=== PATIENT | male | born 1960 | race Caucasian/White ===

== ENCOUNTER 2016-11-11 09:15 | Emergency (ER) | payer BC, OTHER ==
[2016-11-11 09:31] VITALS: BP 126/95
--- NOTE | 2016-11-11 09:47 | EDM.PDOC ---
ED HPI GENERAL MEDICAL PROBLEM - General Chief Complaint: General Stated Complaint: NOT FEELING GOOD, SOB, NECK/BACK PAIN Time Seen by Provider: 11/11/16 09:35 Source of Information: Reports: Patient History Limitations: Reports: No Limitations - History of Present Illness INITIAL COMMENTS - FREE TEXT/NARRATIVE: This 56 yo male patient reports to the ED with left sided neck stiffness, left ear plugging, a sore throat and a productive cough. The patient reports his left neck has been hurting for several days, but seems to be getting worse. The patient has not taken anything for temporary symptom relief. The patient reports he was hand mowing lawns over the weekend when his neck started to ache. The patient reports plugging of his left ear, intermittent dizziness, a sore throat and productive cough started several days ago and are getting worse. The patient reports he can not take NSAIDs due to his polycystic kidney disease. Onset: Gradual Duration: Day(s):, Constant, Getting Worse Location: Reports: Head, Neck, Chest Quality: Reports: Ache, Dull Severity: Moderate Improves with: Reports: None Worsens with: Reports: None Associated Symptoms: Reports: cough w sputum, Shortness of Breath Neck Pain Score (Numeric/FACES): 1 - Related Data Allergies Allergy/AdvReac Type Severity Reaction Status Date / Time No Known Allergies Allergy Verified 11/11/16 09:26 Home Meds: Home Meds Aspirin [Adult Low Dose Aspirin EC] 81 mg PO DAILY 11/11/16 [History] Lisinopril [Prinivil] 10 mg PO DAILY 11/11/16 [History] Past Medical History HEENT History: Reports: None Cardiovascular History: Reports: High Cholesterol, Hypertension Respiratory History: Reports: None Gastrointestinal History: Reports: None Genitourinary History: Reports: None Musculoskeletal History: Reports: None Neurological History: Reports: None Psychiatric History: Reports: None Endocrine/Metabolic History: Reports: None Hematologic History: Reports: None Immunologic History: Reports: None Oncologic (Cancer) History: Reports: None Dermatologic History: Reports: None Social & Family History - Tobacco Use Smoking Status *Q: Heavy Tobacco Smoker Years of Tobacco use: 35 Packs/Tins Daily: 1 - Recreational Drug Use Recreational Drug Use: No ED ROS GENERAL - Review of Systems Review Of Systems: ROS reveals no pertinent complaints other than HPI. ED EXAM, GENERAL - Physical Exam Exam: See Below Exam Limited By: No Limitations General Appearance: Alert, WD/WN, Mild Distress Eye Exam: Bilateral Eye: EOMI, Normal Inspection, PERRL Ear Exam: Right Ear: TM normal, Left Ear: TM Dull, Other (retracted ), Bilateral Ear: Auricle Normal, Canal Normal Nose: Normal Inspection, Normal Mucosa, No Blood Throat/Mouth: Normal Lips, Normal Teeth, Normal Gums, Inflammation (posterior pharynx) Head: Atraumatic, Normocephalic Neck: Normal Inspection, Supple, Limited Range of Motion, Tender Lateral Respiratory/Chest: No Respiratory Distress, No Accessory Muscle Use, Chest Non- Tender, Decreased Breath Sounds (bilateral lower lobes) Cardiovascular: Normal Peripheral Pulses, Regular Rate, Rhythm, No Edema, No Gallop, No JVD, No Murmur, No Rub GI/Abdominal: Normal Bowel Sounds, Soft, Non-Tender, No Organomegaly, No Distention, No Abnormal Bruit, No Mass (Male) Exam: Deferred Rectal (Males) Exam: Deferred Back Exam: Normal Inspection, Full Range of Motion, NT Extremities: Normal Inspection, Normal Range of Motion, Non-Tender, Normal Capillary Refill, No Pedal Edema Neurological: Alert, Oriented, CN II-XII Intact, Normal Cognition, Normal Gait, Normal Reflexes, No Motor/Sensory Deficits Psychiatric: Normal Affect, Normal Mood Skin Exam: Warm, Dry, Intact, Normal Color, No Rash Lymphatic: No Adenopathy Course - Vital Signs Last Recorded V/S: Last Vital Signs Temp 35.3 C 11/11/16 09:27 Pulse 74 11/11/16 09:27 Resp 18 11/11/16 09:27 BP 126/95 H 11/11/16 09:27 Pulse Ox 99 11/11/16 09:27 Departure - Departure Time of Disposition: 09:42 Disposition: Home, Self-Care 01 Condition: fair Clinical Impression: Bronchitis Pharyngitis Qualifiers: Pharyngitis/tonsillitis etiology: unspecified etiology Qualified Code(s): J02.9 - Acute pharyngitis, unspecified Sinusitis Qualifiers: Sinusitis location: maxillary Chronicity: acute Recurrence: non-recurrent Qualified Code(s): J01.00 - Acute maxillary sinusitis, unspecified Neck muscle strain Qualifiers: Encounter type: initial encounter Qualified Code(s): S16.1XXA - Strain of muscle, fascia and tendon at neck level, initial encounter - Discharge Information Instructions: Pharyngitis, [id number], Sinusitis, Adult, [id number], Acute Bronchitis, [id number] Forms: ED Department Discharge Care Plan Goals: The patient was advised of the examination results during the visit. The patient was given a script for Keflex (500 mg) #40 to take 1 by mouth 4 times per day for 10 days. The patient was encouraged to take Tylenol for his neck pain and use heat. If the patient has any additional symptoms or concerns, the patient should follow-up with his primary care facility or return to the emergency department.
== END 2016-11-11 09:51 | disposition home or self-care (01) ==
LOC: DL.ED 09:15
DX: S16.1XXA Strain of muscle, fascia and tendon at neck level, initial encounter (principal); J40 Bronchitis, not specified as acute or chronic; J02.9 Acute pharyngitis, unspecified; J01.00 Acute maxillary sinusitis, unspecified; E78.00 Pure hypercholesterolemia, unspecified; I10 Essential (primary) hypertension; F17.210 Nicotine dependence, cigarettes, uncomplicated; Z79.899 Other long term (current) drug therapy; Z79.82 Long term (current) use of aspirin; X58.XXXA Exposure to other specified factors, initial encounter
CPT/HCPCS: 99283

== ENCOUNTER 2018-07-30 03:49 | Emergency (ER) | payer OTHER ==
[~2018-07-30 03:49] MED LIST: Acetaminophen 325 MG Tab PO ONE; Nitroglycerin 0.4 MG Tab.SL SL ONE
[2018-07-30 04:02] VITALS: BP 129/99
--- NOTE | 2018-07-30 04:03 | EDM.PDOC ---
<Andreia Escobar - Last Filed: 07/30/18 06:01> ED HPI GENERAL MEDICAL PROBLEM - General Chief Complaint: Chest Pain Stated Complaint: AMBULANCE-UNKNOWN Time Seen by Provider: 07/30/18 03:55 Source of Information: Reports: Patient, EMS Notes Reviewed History Limitations: Reports: No Limitations - History of Present Illness INITIAL COMMENTS - FREE TEXT/NARRATIVE: ED with c/o midsternal chest pain onset 033. Diaphoretic at onset, sharp, pounding pressure. No nausea no radiation to jaw or arm. Reports pain radiating to back. Hx hypertension, has not taken meds past couple of days. No prior hx of IA, smoker 1 ppd. Rated pain 8/10 at onset. 4/10 on arrival to ED. 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: Reports: Nitroglycerin Mid-Sternal Chest Pain Score (Numeric/FACES): 7 - Related Data Allergies Allergy/AdvReac Type Severity Reaction Status Date / Time No Known Allergies Allergy Verified 07/30/18 03:58 Home Meds: Home Meds Aspirin [Adult Low Dose Aspirin EC] 81 mg PO DAILY 11/11/16 [History] Lisinopril [Prinivil] 10 mg PO DAILY 11/11/16 [History] Past Medical History HEENT History: Reports: None Cardiovascular History: Reports: High Cholesterol, Hypertension Respiratory History: Reports: COPD Gastrointestinal History: Reports: None Genitourinary History: Reports: None Musculoskeletal History: Reports: None Neurological History: Reports: None Psychiatric History: Reports: None Endocrine/Metabolic History: Reports: None Hematologic History: Reports: None Immunologic History: Reports: None Oncologic (Cancer) History: Reports: None Dermatologic History: Reports: None ED ROS GENERAL - Review of Systems Review Of Systems: ROS reveals no pertinent complaints other than HPI. ED EXAM, GENERAL - Physical Exam Exam: See Below Exam Limited By: No Limitations General Appearance: Alert, Anxious, Mild Distress Eye Exam: Bilateral Eye: EOMI Ears: Normal External Exam Nose: Normal Inspection Throat/Mouth: Normal Inspection Head: Atraumatic, Normocephalic Neck: Normal Inspection, Full Range of Motion Respiratory/Chest: No Respiratory Distress, Lungs Clear, Normal Breath Sounds Cardiovascular: Normal Peripheral Pulses, Regular Rate, Rhythm, No Edema, No JVD , No Murmur GI/Abdominal: Normal Bowel Sounds, Soft, Tender (mild epigastric with palpation) Back Exam: Full Range of Motion Extremities: Normal Inspection, Normal Range of Motion Neurological: Alert, Oriented, Normal Cognition Psychiatric: Normal Affect Skin Exam: Warm, Dry, Intact, Normal Color Course - Vital Signs Last Recorded V/S: Last Vital Signs Temp 36.6 C 07/30/18 03:55 Pulse 85 07/30/18 03:55 Resp 13 07/30/18 03:55 BP 129/99 H 07/30/18 04:00 Pulse Ox 96 07/30/18 04:04 - Orders/Labs/Meds Orders: Active Orders 24 hr Category Date Time Status EKG 12 Lead [EKG Documentation Completion] [] URGENT Care 07/30/18 03:39 Active EKG 12 Lead [EKG Documentation Completion] [] URGENT Care 07/30/18 07:30 Active Heparin Sodium/0.45% NaCl [Heparin 25,000 Units in 1/2 Med 07/30/18 08:15 Active NS 500 ML] 25,000 units in 500 ml IV TITRATE Medication Orders Heparin Sodium/Sodium Chloride (Heparin 25,000 Units In 1/2 Ns 500 Ml) 25,000 units in 500 mls @ 24.494 mls/hr IV TITRATE ALEXEI; Protocol Last Admin: 07/30/18 08:19 Dose: 12 units/kg/hr, 24.494 mls/hr Labs: Laboratory Tests 07/30/18 07/30/18 07/30/18 Range/Units 03:50 03:50 03:50 WBC 7.9 (5.0-10.0) 10^3/uL RBC 4.17 L (4.6-6.2) 10^6/uL Hgb 13.4 L (14.0-18.0) g/dL Hct 40.2 (40.0-54.0) % MCV 96.4 (80-100) fL MCH 32.1 (27.0-34.0) pg MCHC 33.3 (33.0-35.0) g/dL Plt Count 213 (150-450) 10^3/uL Neut % (Auto) 51.5 (42.2-75.2) % Lymph % (Auto) 34.8 (20.5-50.1) % [place] % (Auto) 8.4 H (2-8) % Eos % (Auto) 4.5 H (1.0-3.0) % Baso % (Auto) 0.8 (0.0-1.0) % PT 10.1 (9.0-12.0) SEC INR 1.0 (0.9-1.2) D-Dimer, Quantitative 160 (0-400) ng/mL Sodium 138 (135-145) mmol/L Potassium 4.1 (3.6-5.0) mmol/L Chloride 105 (101-111) mmol/L Carbon Dioxide 24.0 (21.0-31.0) mmol/L Anion Gap 13.1 BUN 28 H (7-18) mg/dL Creatinine 1.8 H (0.6-1.3) mg/dL Est Cr Clr Drug Dosing 50.74 mL/min Estimated GFR (MDRD) 39 BUN/Creatinine Ratio 15.55 Glucose 180 H (74-105) mg/dL Calcium 8.9 (8.4-10.2) mg/dl Magnesium 1.8 (1.8-2.5) mg/dL Total Bilirubin 0.5 (0.2-1.0) mg/dL AST 26 (10-42) IU/L ALT 22 (10-60) IU/L Alkaline Phosphatase 54 (42-121) IU/L CK-MB (CK-2) (0.4-4.7) ng/mL Troponin I < 0.02 (0.00-0.02) ng/ml Total Protein 6.9 (6.7-8.2) g/dl Albumin 3.9 (3.2-5.5) g/dl Globulin 3.0 Albumin/Globulin Ratio 1.30 07/30/18 07/30/18 Range/Units 03:50 07:30 WBC (5.0-10.0) 10^3/uL RBC (4.6-6.2) 10^6/uL Hgb (14.0-18.0) g/dL Hct (40.0-54.0) % MCV (80-100) fL MCH (27.0-34.0) pg MCHC (33.0-35.0) g/dL Plt Count (150-450) 10^3/uL Neut % (Auto) (42.2-75.2) % Lymph % (Auto) (20.5-50.1) % [place] % (Auto) (2-8) % Eos % (Auto) (1.0-3.0) % Baso % (Auto) (0.0-1.0) % PT (9.0-12.0) SEC INR (0.9-1.2) D-Dimer, Quantitative (0-400) ng/mL Sodium (135-145) mmol/L Potassium (3.6-5.0) mmol/L Chloride (101-111) mmol/L Carbon Dioxide (21.0-31.0) mmol/L Anion Gap BUN (7-18) mg/dL Creatinine (0.6-1.3) mg/dL Est Cr Clr Drug Dosing mL/min Estimated GFR (MDRD) BUN/Creatinine Ratio Glucose (74-105) mg/dL Calcium (8.4-10.2) mg/dl Magnesium (1.8-2.5) mg/dL Total Bilirubin (0.2-1.0) mg/dL AST (10-42) IU/L ALT (10-60) IU/L Alkaline Phosphatase (42-121) IU/L CK-MB (CK-2) 3.40 (0.4-4.7) ng/mL Troponin I 2.96 H* (0.00-0.02) ng/ml Total Protein (6.7-8.2) g/dl Albumin (3.2-5.5) g/dl Globulin Albumin/Globulin Ratio Meds: Medications Generic Name Dose Route Start Last Admin Trade Name Freq PRN Reason Stop Dose Admin Heparin Sodium/Sodium Chloride 25,000 units in 500 mls @ 24.494 mls/hr 08:15 07/30/18 08:19 Heparin 25,000 Units In 1/2 Ns 500 Ml IV 12 units/kg/hr TITRATE ALEXEI 24.494 mls/hr Administration Protocol 12 UNITS/KG/HR Discontinued Medications Generic Name Dose Route Start Last Admin Trade Name Freq PRN Reason Stop Dose Admin Acetaminophen 650 mg 07/30/18 03:47 07/30/18 03:59 Tylenol PO 07/30/18 03:48 650 mg NOW ONE Administration Clopidogrel Bisulfate 300 mg 07/30/18 08:05 07/30/18 08:12 Plavix PO 07/30/18 08:06 300 mg ONETIME ONE Administration Heparin Sodium (Porcine) 4,000 units 07/30/18 08:05 07/30/18 08:14 Heparin Sodium IVPUSH 07/30/18 08:06 4,000 units ONETIME ONE Administration Morphine Sulfate 2 mg 07/30/18 04:21 07/30/18 04:27 Morphine IVPUSH 07/30/18 04:22 2 mg ONETIME ONE Administration Nitroglycerin 0.4 mg 07/30/18 03:44 07/30/18 04:00 Nitrostat SL 07/30/18 03:45 0.4 mg ONETIME ONE Administration Ondansetron HCl 4 mg 07/30/18 04:21 07/30/18 04:26 Zofran IV 07/30/18 04:22 4 mg ONETIME ONE Administration - Radiology Interpretation Free Text/Narrative:: accordance with law. If you received this in error, call [phone]. Page 1 of 1 EXAM: XR Chest, 1 View EXAM DATE/TIME: 07/30/2018 4:08 AM CLINICAL HISTORY: 58 years old, male; Pain; Chest pain; Type not specified TECHNIQUE: XR of the chest, 1 view. COMPARISON: CR CHEST PORTABLE 02/27/2012 5:45 PM FINDINGS: Lungs: Unremarkable. No consolidation. Pleural space: Unremarkable. No pleural effusion. No pneumothorax. Heart/Mediastinum: Unremarkable. No cardiomegaly. Bones/joints: Unremarkable. IMPRESSION: No acute findings. Thank you for allowing us to participate in the care of your patient. Dictated and Authenticated by: Allan Paez MD 07/30/2018 5:49 AM Central Time ([place] & [place]) - Re-Assessments/Exams Free Text/Narrative Re-Assessment/Exam: 07/30/18 05:51 Pain 1/10 after 3rd Nitro. No distress. Family here conversing with them and talking on phone. VSS. Telemetry remains NSR without ectopy. Initial EKG unremarkable for acute event. No EKG's available for comparison. Does c/o slight headache after nitro. Morphine 2mgwith complete relief of chest pain Continue to monitor and repeat torponin and EKG at 0730. Departure - Departure Disposition: DC/Tfer to [facility] Clinical Impression: Non-ST elevated myocardial infarction (non-STEMI) Forms: ED Department Discharge, Interfacility Transfer EMTALA - My Orders Last 24 Hours: My Active Orders 07/30/18 08:15 Heparin Sodium/0.45% NaCl [Heparin 25,000 Units in 1/2 NS 500 ML] 25,000 units in 500 ml IV TITRATE - Assessment/Plan Last 24 Hours: My Active Orders 07/30/18 08:15 Heparin Sodium/0.45% NaCl [Heparin 25,000 Units in 1/2 NS 500 ML] 25,000 units in 500 ml IV TITRATE <ClaylakhwinderFlavioian - Last Filed: 07/30/18 08:23> ED HPI GENERAL MEDICAL PROBLEM - History of Present Illness INITIAL COMMENTS - FREE TEXT/NARRATIVE: I assumed care of pt from Evelyn OLIVER at 0700HR shift change with pt resting comfortably and pain free awaiting repeat Trop. and EKG which are ordered for 0730HRS. No changes found to cc/HPI, Hx, ROS, exam, or initial diagnostic results as documented by Andreia for this encounter. Past Medical History Genitourinary History: Reports: Other (See Below) (Polycystic kidney disease) Social & Family History - Family History Cardiac: Reports: Hypertension : Reports: Cystic Kidney Disease - Tobacco Use Smoking Status *Q: Current Every Day Smoker Tobacco Use Within Last Twelve Months: Cigarettes - Living Situation & Occupation Living situation: Reports: Occupation: Employed ED EXAM, GENERAL - Physical Exam Free Text/Narrative:: No changes to exam as documented by Andreia OLIVER for this encounter. EKG INTERPRETATION EKG Date: 07/30/18 Time: 07:34 Rhythm: Other (SR) Rate (Beats/Min): 64 [place]: RAD-Right [place] Deviation (borderline) P-Wave: Present QRS: Normal ST-T: Normal QT: Normal Comparison: No Change EKG Interpretation Comments: No acute ischemic changes. Course - Re-Assessments/Exams Free Text/Narrative Re-Assessment/Exam: 07/30/18 08:05 Second Troponin elevated significantly, pt remains pain free. ALS ground transfer initiated. Dr. Alanis accepts pt as direct admit to [facility]. Tru Departure - Departure Time of Disposition: 08:15 Reason for Transfer *Q: Primary PCI Indicated Condition: Critical - My Orders Last 24 Hours: My Active Orders 07/30/18 08:15 Heparin Sodium/0.45% NaCl [Heparin 25,000 Units in 1/2 NS 500 ML] 25,000 units in 500 ml IV TITRATE - Assessment/Plan Last 24 Hours: My Active Orders 07/30/18 08:15 Heparin Sodium/0.45% NaCl [Heparin 25,000 Units in 1/2 NS 500 ML] 25,000 units in 500 ml IV TITRATE
[2018-07-30 04:18] LABS: ANION GAP 13.1; CHLORIDE,CL 105 mmol/L (101-111); SODIUM,NA 138 mmol/L (135-145)
[2018-07-30] MEDS ORDERED: Ondansetron 4 MG/2 ML SDV IV ONE (04:21)
[2018-07-30] MEDS ORDERED: Morphine 2 MG/ML Syringe IVPUSH ONE (04:21)
[2018-07-30] MEDS ORDERED: Clopidogrel 75 MG Tab PO ONE (08:05)
[2018-07-30] MEDS ORDERED: Heparin Sodium 5,000 Units/ML Vial IVPUSH ONE (08:05)
[2018-07-30] MEDS ORDERED: Heparin Sodium/0.45% NaCl 25,000 UNITS/500 ML BAG IV SCH (08:15)
== END 2018-07-30 09:03 ==
LOC: DL.ED 03:49
DX: I21.4 Non-ST elevation (NSTEMI) myocardial infarction (principal); I10 Essential (primary) hypertension; J44.9 Chronic obstructive pulmonary disease, unspecified; R10.13 Epigastric pain; F17.210 Nicotine dependence, cigarettes, uncomplicated; Z79.82 Long term (current) use of aspirin; Z79.899 Other long term (current) drug therapy
CPT/HCPCS: 36415; 71045; 80053; 82553; 83735; 84484; 85025; 85379; 85610; 93005; 96365; 96375; 96376; 99285; A9270; J1644; J2270; J2405